=== PATIENT | male | born 1985 | race Caucasian/White ===

== ENCOUNTER → 2024-06-08 14:44 | Outpatient (CLI) | payer OTHER, SELFPAY ==
--- NOTE | 2024-06-08 14:45 | DI.RAD.S_ITS ---
PROCEDURE: XR FOREARM LT 2V INDICATIONS: Left forearm injury TECHNIQUE: 2 views of the forearm were acquired. COMPARISON: [facility], CR, XR FOREARM RIGHT, 01/22/2020, 9:51. FINDINGS: Bones: Fracture of the distal ulnar shaft. There is no significant displacement. The fracture may be incomplete. Anatomic alignment. No dislocations. No suspicious bony lesions. Soft tissues: No suspicious soft tissue calcifications or masses. IMPRESSION: Fracture of the distal ulnar shaft. No significant displacement. Dictated by: Chris Metz M.D. on 06/08/2024 at 19:55 Approved by: Chris Metz M.D. on 06/08/2024 at 19:57
== END ==
PROVIDERS: Referring Provider Nurse Practitioner Family; Visit Provider Nurse Practitioner Family
DX: S52.602A Unspecified fracture of lower end of left ulna, initial encounter for closed fracture (principal); X58.XXXA Exposure to other specified factors, initial encounter
CPT/HCPCS: 73090